=== PATIENT | female | born 1950 | race African-American/Black ===

== ENCOUNTER 2022-04-14 09:05 | Emergency (ER) | payer MEDICARE | END 2022-04-14 10:32 | disposition home or self-care (01) | LOC: ERS 09:05 | DX: B02.9 Zoster without complications (principal); E11.9 Type 2 diabetes mellitus without complications; I10 Essential (primary) hypertension; E78.5 Hyperlipidemia, unspecified | CPT/HCPCS: 99283 ==

== ENCOUNTER 2022-08-07 08:40 | Outpatient (CLI) | payer MEDICARE | END 2022-08-07 08:41 | disposition home or self-care (01) | LOC: BICRAD 08:40 | PROVIDERS: ATTEND Family Medicine | DX: R05.3 Chronic cough (principal); J98.4 Other disorders of lung | CPT/HCPCS: 71046 ==